=== PATIENT | female | born 1935 | race Caucasian/White ===

== ENCOUNTER 2018-09-16 23:38 | Emergency (ER) | payer MEDICAID ==
[~2018-09-16] VITALS: Ht 162.6 cm; Wt 70.5 kg
[~2018-09-16 23:38] MED LIST: ATEN-42 PO; GABA-531 PO; HUM10VIA6 SQ; HUM10VIA8 SQ; HYDR25TA PO; INSU100I28 SQ; LOSA1TAB37 GT; SIMV20TA6 PO; VALS160T2 PO
[2018-09-16] MEDS ORDERED: ONDANSETRON HCL 4MG/2ML INJ IV STA (23:57)
[2018-09-16] MEDS ORDERED: SODIUM CHLORIDE 0.9% 1,000 ML IV ONE (23:57)
[2018-09-17 00:44] LABS: HEMATOCRIT. 39.1 % (36.0-48.0); HEMOGLOBIN. 13.1 g/dL (12.0-16.0); MEAN CORPUSCULAR HEMOGLOBIN 28.9 pg (28.0-32.0); MEAN CORPUSCULAR VOLUME 86.5 fL (81.0-99.0); MEAN PLATELET VOLUME 8.6 fl (7.4-10.4); PLATELET 175 x1000/uL (130-400); RED BLOOD CELL COUNT 4.52 mill/uL (4.2-5.4); RED CELL DISTRIBUTION WIDTH 12.8 % (11.6-14.6)
[2018-09-17 00:48] LABS: CHLORIDE 99 mEq/L (98-107); PROTHROMBIN TIME 10.5 sec (9.1-11.1)
[2018-09-17 01:10] LABS: PLATELET ESTIMATE NORMAL
[2018-09-17] MEDS ORDERED: DIATR MEGLU/DIATRIZOATE SOLN 30ML ONE (02:20)
[2018-09-17] MEDS ORDERED: LOSARTAN POTASSIUM 25 MG TABLET GT ONE (04:15)
[2018-09-17] MEDS ORDERED: CLONIDINE 0.2MG TABLET GT ONE (04:15)
[2018-09-17 08:55] VITALS: BP 180/78
== END 2018-09-17 09:18 | disposition home or self-care (01) ==
LOC: ER 23:38 → CANBEDREQ 09-17 06:03 → ER 09-17 09:18
DX: K94.23 Gastrostomy malfunction (principal); D64.9 Anemia, unspecified; E78.00 Pure hypercholesterolemia, unspecified; E11.9 Type 2 diabetes mellitus without complications; J44.9 Chronic obstructive pulmonary disease, unspecified; I25.10 Atherosclerotic heart disease of native coronary artery without angina pectoris; W18.39XA Other fall on same level, initial encounter; Y93.89 Activity, other specified; Y92.89 Other specified places as the place of occurrence of the external cause; Y99.8 Other external cause status; Z86.73 Personal history of transient ischemic attack (TIA), and cerebral infarction without residual deficits; Z98.61 Coronary angioplasty status; Z79.899 Other long term (current) drug therapy; Z79.4 Long term (current) use of insulin
CPT/HCPCS: 36415; 43760; 70450; 71045; 72125; 72170; 74018; 80053; 85025; 85610; 93005; 96374; 99284; J2405; J7030; Q9963